=== PATIENT | female | born 1970 | race Caucasian/White ===

== ENCOUNTER → 2016-11-08 | Outpatient (CLI) | payer OTHER ==
[~2016-11-08] MED LIST: NORCO 5-325 TA1 EACH PO; TYLENOL325 MG PO
== END | disposition disaster alternative care site (69) ==
LOC: GRAD 09:30
DX: E04.1 Nontoxic single thyroid nodule (principal)
CPT/HCPCS: A9516

== ENCOUNTER 2016-11-20 06:00 | Day surgery (SDC) | payer OTHER ==
[~2016-11-20] VITALS: Ht 162.6 cm; Wt 63.6 kg
--- NOTE | ~2016-11-20 | OR ---
PATIENT'S NAME: MESHA ANDERSON [facility] AGE: 46 Y [address] ROOM: [place] [address] LOCATION: [facility] [place] ADMIT DATE: 11/20/2016 OR/Procedure Report DISCHARGE DATE: FAMILY PHYSICIAN: Bahman Van MD ATTENDING PHYSICIAN: Arturo Connors V SURGEON: Arturo Connors MD ANALYSIS LEAD: Dr. Stacy Espinosa. DATE OF PROCEDURE: 11/20/2016 PREOPERATIVE DIAGNOSIS: Left thyroid mass. POSTOPERATIVE DIAGNOSIS: Left thyroid mass. PROCEDURE PERFORMED: 1. Left thyroid lobectomy and isthmusectomy. 2. Recurrent laryngeal nerve monitoring with intraoperative EMG. ANESTHESIA: General endotracheal anesthesia. ESTIMATED BLOOD LOSS: 15 mL. FINDINGS: 1. Frozen section consistent with lymphocytic thyroiditis. No evidence of malignancy. Recurrent laryngeal nerve was anatomically and physiologically intact at the conclusion of the case. 2. Both the superior and inferior parathyroid glands were identified and preserved in situ. SPECIMEN: Left thyroid lobectomy. INDICATION: Ms. Anderson is a 46-year-old female with a left thyroid mass. This was biopsied and showed a follicular adenoma. It was recommended that she undergo a left thyroid lobectomy. She also is hyperthyroid. PROCEDURE DETAILS: The patient was seen in the preoperative holding area. Informed written consent was obtained from the patient for a left thyroid lobectomy and isthmusectomy. After full knowledge of the risks, benefits, and alternatives, the patient wished to proceed. The patient was taken to the operating room, placed on the operating room table. General endotracheal anesthesia was induced with a nerve integrity monitoring tube. A time-out was performed identifying the patient as well as the procedure to be performed. The nerve integrity monitoring system was hooked up and confirmed to be working appropriately. We designed a 4.5 cm incision in the anterior neck, two fingerbreadths above the sternal notch, in a natural skin crease. This incision was then infiltrated with 1% lidocaine with 1:100,000 parts PATIENT'S NAME: MESHA ANDERSON [facility] AGE: 46 Y [address] ROOM: [place] [address] LOCATION: [facility] [place] ADMIT DATE: 11/20/2016 OR/Procedure Report DISCHARGE DATE: FAMILY PHYSICIAN: Bahman Van MD ATTENDING PHYSICIAN: Arturo Connors. The patient was then prepped and draped in a normal sterile fashion. An incision was made through the skin using a #15 blade. Subcutaneous dissection was continued through the platysma muscle which was incised. Subplatysmal flaps were elevated superiorly. We then identified the strap muscles and divided the strap muscles at the midline raphe. We came down to the thyroid isthmus and dissected enough in the loose areolar plane between the thyroid and the strap muscles, carrying this out laterally on the left side until I identified the carotid artery. The middle thyroid vein was dissected with Harmonic scalpel. We then divided the thyroid isthmus using Harmonic scalpel off the anterior tracheal wall. We then went up superiorly to the superior pole and dissected the vessels clear after making a medial and a lateral tunnel. The superior pole was taken down using a Harmonic scalpel and the thyroid lobe was then able to be delivered out of the neck. We continued our dissection inferiorly and identified the parathyroid gland which was dissected off the thyroid capsule. The recurrent laryngeal nerve was identified in its normal anatomical location and preserved. The thyroid was dissected off Olivas's ligament. The inferior thyroid vessels were then divided using Harmonic scalpel. At the cricothyroid joint, the remainder of Olivas's ligament was clamped with a right angle and the remaining thyroid tissue was cut off and removed for frozen section. This tissue was then ligated. We then copiously irrigated the wound with sterile saline mixed with bacitracin. Hemostasis was achieved. We then began closing the wound. We reapproximated the strap muscles in the midline using 3-0 Vicryl suture in a running locking fashion. We closed the platysma with 3-0 Vicryl suture in a deep buried fashion. We then closed the skin with a 4-0 Monocryl in a running subcuticular fashion. The wound was then dressed with Steri-Strips and a gauze and Tegaderm. This marked the conclusion of the procedure. All sponge and needle counts were correct x2. The patient was passed back to Anesthesia where she was extubated without difficulty and transported to PACU in stable condition. STACY ESPINOSA, ENT RESIDENT PGY5 FOR MD JOAO HAYNES/modl /[id number] d: 11/20/16 1403 t: 12/12/16 0805, OPERATIVE SUMMARY
--- NOTE | 2016-11-21 05:12 | NUR ---
Significant Event: Patient is alert and oriented x3 ambulates independently. vss wnl on ra. Clear liquid diet surgical soft for breakfast. incison with benzo steristrips covered with gauze and tagaderm. no complaints of pain or discomfort, nausea or vomiting this shift. No meds delivered. patient is on menses tampon in place. to neck dressing dry and intact. Follow up:
[2016-11-21] MEDS ORDERED: TYLENOL325 MG PO (07:45)
[2016-11-21] MEDS ORDERED: NORCO 5-325 TA1 EACH PO (07:46)
--- NOTE | 2016-11-21 08:53 | NUR ---
DISCHARGE: Pt. and educated on thyroid surgery, discharge instructions, incision care, and new medications: norco & tylenol. Verbalized understanding of teaching, no questions or concerns. Left with all belongings and prescriptions. IV removed by primary nurse. Taken to front door by aide and driven home by .
--- NOTE | 2016-11-21 10:15 | NUR ---
DISMISSED TO FRONT DOOR FOR DISCHARGE ACCOMP.BY & TALENT ASSISTANT.DISCHARGE INSTRUCTIONS GIVEN BY VIRTUAL NURSE & SENT WITH PT.
== END 2016-11-21 10:15 | disposition disaster alternative care site (69) ==
LOC: GSDC 06:00 → GMSU 10:43 → GSDC 11-21 10:15
PROC: 0GTG0ZZ Resection of Left Thyroid Gland Lobe, Open Approach (ICD-10-PCS; principal; 2016-11-20)
DX: E04.1 Nontoxic single thyroid nodule (principal); E06.5 Other chronic thyroiditis; Z98.890 Other specified postprocedural states
CPT/HCPCS: J1100; J2001; J2250; J2405; J7030